=== PATIENT | female | born 1975 | race Caucasian/White ===

== ENCOUNTER 2017-11-20 15:55 | Outpatient (CLI) | payer BC ==
[2017-11-20 18:04] LABS: Hemoglobin 14.8 g/dL (12.0-16.0); Mean Corpuscular Hemoglobin 31.8 pg (27.0-31.0); Mean Corpuscular Volume 93.6 fL (78.0-98.0); Mean Platelet Volume 9.3 fL (7.4-10.4); Platelet Count 218 thou/uL (130-400); RBC Distribution Width 11.5 % (11.5-14.5); Red Blood Cell (RBC) Count 4.67 mill/uL (4.20-5.40); White Blood Cell (WBC) Count 6.3 thou/uL (4.8-10.8)
[2017-11-20 18:37] LABS: BHCG - Serum Negative (NEGATIVE); Pregs Control Background? CLEAR/WHITE (CLR/WHITE); Pregs Control Bar Appear? YES (CONTROL BAR)
== END 2017-11-20 15:56 | disposition home or self-care (01) ==
LOC: LABBT 15:55
PROVIDERS: ATTEND Obstetrics & Gynecology
DX: Z01.812 Encounter for preprocedural laboratory examination (principal); N85.00 Endometrial hyperplasia, unspecified; N94.6 Dysmenorrhea, unspecified; N92.0 Excessive and frequent menstruation with regular cycle
CPT/HCPCS: 84703; 85027

== ENCOUNTER 2018-03-26 08:11 | Outpatient (CLI) | payer BC | END 2018-03-26 08:12 | disposition home or self-care (01) | LOC: BICMAMMO 08:11 | PROVIDERS: ATTEND Obstetrics & Gynecology | DX: Z12.31 Encounter for screening mammogram for malignant neoplasm of breast (principal) | CPT/HCPCS: 77063; 77067 ==

== ENCOUNTER 2019-08-31 17:46 | Emergency (ER) | payer BC ==
[2019-08-31 18:53] LABS: #Basophils 0.1 thou/uL (0.0-0.2); #Eosinphils 0.2 thou/uL (0.0-0.7); #Monocytes 0.7 thou/uL (0.11-0.59); #Neutrophils 4.2 thou/uL (1.40-6.50); %Basophils 0.7 % (0.0-1.0); %Eosinophils 2.3 % (0.0-10.0); %Lymphocytes 28.1 % (21.0-51.0); %Monocytes 9.3 % (0.0-10.0); %Neutrophils 59.6 % (42.0-75.0); Hemoglobin 13.4 g/dL (12.0-16.0); Mean Corpuscular HGB CONC 33.8 g/dL (32.0-36.0); Mean Corpuscular Hemoglobin 31.7 pg (27.0-31.0); Mean Corpuscular Volume 93.9 fL (78.0-98.0); Platelet Count 227 thou/uL (130-400); RBC Distribution Width 11.2 % (11.5-14.5); Red Blood Cell (RBC) Count 4.22 mill/uL (4.20-5.40)
[2019-08-31 19:14] LABS: ALT (SGPT) 15 U/L (8-55); AST (SGOT) 16 U/L (5-34); Albumin 4.4 g/dL (3.5-5.0); Alkaline Phosphatase 49 U/L (40-110); Anion Gap 13 mmol/L (10-20); BUN (Urea Nitrogen) 24 mg/dL (7.0-18.7); Bilirubin, Total 0.5 mg/dL (0.2-1.2); Calc. Creatinine Clearance 0 mL/min (70-130); Calcium 9.6 mg/dL (7.8-10.44); Carbon Dioxide 24 mmol/L (22-29); Chloride 106 mmol/L (98-107); Estimated GFR-MDRD 60; Globulin 2.8 g/dL (2.4-3.5); Glucose 96 mg/dL (70-105); Protein, Total 7.2 g/dL (6.0-8.3); Sodium 139 mmol/L (136-145)
--- NOTE | 2019-08-31 20:40 | RAD ---
CHEST ONE VIEW: Indication: Chest pain Comparison: None FINDINGS: Lungs are clear. Heart size is normal. No acute osseous abnormalities are evident. IMPRESSION: No acute cardiopulmonary abnormality. POS: BH
--- NOTE | 2019-09-05 14:52 | EKG ---
Test Reason : BRADYCARDIA Blood Pressure : / mmHG Vent. Rate : 049 BPM Atrial Rate : 049 BPM P-R Int : 136 ms QRS Dur : 092 ms QT Int : 406 ms P-R-T Axes : 051 024 041 degrees QTc Int : 366 ms Sinus bradycardia Incomplete right bundle branch block Borderline ECG Confirmed by FERNANDO DOE, ASHANTI ([id number]), podiatric assistant CRISTINA NAVARRETE ([id number]) on 09/05/2019 2:51:31 PM Referred By: [facility] Confirmed By:ASHANTI KING MD
== END 2019-08-31 21:41 | disposition home or self-care (01) ==
LOC: ERS 17:46
DX: R00.1 Bradycardia, unspecified (principal)
CPT/HCPCS: 36415; 71045; 80053; 84484; 85025; 93005

== ENCOUNTER 2019-11-12 07:49 | Outpatient (CLI) | payer BC ==
--- NOTE | 2019-11-12 08:35 | CT ---
CT ANGIOGRAM THORAX WITH CONTRAST: DATE: 11/12/2019 HISTORY: 44-year-old female with thoracic aortic aneurysm. TECHNIQUE: IV injection of iodinated contrast. Scan acquisition timing attempted to coincide with iodinated contrast bolus reaching maximal density in the thoracic aorta. 3-D MIP reconstructions. COMPARISON: None FINDINGS: There is fusiform dilation of the ascending aorta, with caliber of approximately 4.1 x 4.2 cm. No dis section. Aortic arch caliber is 2.4 cm just posterior to origin of left subclavian artery. Descending thoracic aorta caliber is 2.3 cm. No thoracic aortic dissection or rupture. No pericardial effusion, pleural effusion, pneumothorax, consolidation, pulmonary edema, pulmonary ma ss, emphysematous changes, or tracheal bronchial stenosis. No significant mediastinal or hilar lymphadenopathy. Thoracic vertebral body heights are maintained. 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
== END 2019-11-12 07:50 | disposition home or self-care (01) ==
LOC: BICCT 07:49
PROVIDERS: ATTEND Internal Medicine Cardiovascular Disease
DX: I71.2 Thoracic aortic aneurysm, without rupture (principal)
CPT/HCPCS: 71275

== ENCOUNTER 2021-02-27 07:56 | Outpatient (CLI) | payer BC | END 2021-02-27 07:57 | disposition home or self-care (01) | LOC: BICRAD 07:56 | PROVIDERS: ATTEND Physician Assistant | DX: R06.02 Shortness of breath (principal); R53.83 Other fatigue | CPT/HCPCS: 71046 ==